=== PATIENT | male | born 1955 | race Caucasian/White ===

== ENCOUNTER → 2016-08-08 | Outpatient (REF) | payer BC ==
[~2016-08-08] MED LIST: ASPI-860 PO; ATN25T PO; LOSA100T8 PO; LOVA20TA2 PO
[2016-08-08 11:41] LABS: BASOPHILS % (AUTO) 1 % (0-2); EOSINOPHILS # (AUTO) 0.1 10^3uL; EOSINOPHILS % (AUTO) 2 % (0-4); LYMPHOCYTES # (AUTO) 1.9 X10^3; MEAN CORPUSCULAR HGB CONC 35.2 g/dL (31.0-37.0); MEAN CORPUSCULAR VOLUME 92 FL (80-100); MEAN PLATELET VOLUME 11.3 FL (6.0-9.5); MONOCYTES # (AUTO) 0.5 X10^3; MONOCYTES % (AUTO) 7 % (3-11); NEUTROPHILS # (AUTO) 4.9 X10^3; NEUTROPHILS % (AUTO) 66 % (51-67); PLATELET COUNT 111 10^3uL (150-450); WHITE BLOOD COUNT 7.43 10^3uL (4.0-11.0)
[2016-08-08 11:45] LABS: ANION GAP 19.5 MEQ/L (3-15); CALCULATED IONIZED CALCIUM 4.1 mg/dL (3.8-4.6); TOTAL PROTEIN 8.1 g/dL (6.4-8.5)
[2016-08-08 11:47] LABS: BILIRUBIN,URINE Negative (Negative); CLARITY,URINE Clear; COLOR,URINE Yellow; GLUCOSE, URINE (UA) Negative (Negative); LEUKOCYTE ESTERASE, URINE Negative (Negative); UROBILINOGEN,URINE 0.2 mg/dL (0.2-1.0)
[2016-08-08 11:53] LABS: MEAN CORPUSCULAR HEMOGLOBIN 32.2 PG (26.0-34.0)
== END ==
LOC: LAB 11:25
PROVIDERS: ATTEND Family Medicine
DX: I10 Essential (primary) hypertension (principal); E78.2 Mixed hyperlipidemia
CPT/HCPCS: 80053; 80061; 81003; 85025

== ENCOUNTER 2016-09-15 06:25 | Day surgery (SDC) | payer BC ==
[~2016-09-15] VITALS: Ht 172.7 cm; Wt 88.2 kg
[~2016-09-15 06:25] MED LIST changes: -ASPI-860 PO; -ATN25T PO; +LACTATED RINGERS 1,000 ML IV SCH; -LOSA100T8 PO; -LOVA20TA2 PO; +SODIUM CHLORIDE FLUSH 3 ML SYR IV PRN
[2016-09-15 06:38] VITALS: BP 132/73
[2016-09-15] MEDS ORDERED: PROPOFOL 20 ML IV ONE (07:22)
[2016-09-15] MEDS ORDERED: ALFENTANIL 500 MCG/ML (ALFENTA) 5 ML AMP IV ONE ×2 (07:23)
[2016-09-15] MEDS ORDERED: MIDAZOLAM 2 MG/2 ML (VERSED) VIAL ONE (07:23)
[2016-09-15 08:25] VITALS: BP 109/69
[2016-09-15 08:52] VITALS: BP 132/79
== END 2016-09-15 08:54 | disposition home or self-care (01) ==
LOC: ASC 06:25
PROVIDERS: ATTEND Family Medicine
DX: Z12.11 Encounter for screening for malignant neoplasm of colon (principal); D12.0 Benign neoplasm of cecum; D17.79 Benign lipomatous neoplasm of other sites; K70.30 Alcoholic cirrhosis of liver without ascites; I10 Essential (primary) hypertension; Z85.3 Personal history of malignant neoplasm of breast; E78.2 Mixed hyperlipidemia; F17.210 Nicotine dependence, cigarettes, uncomplicated
CPT/HCPCS: 45380; 45385; J2250; J7120